=== PATIENT | female | born 1980 | race Caucasian/White ===

== ENCOUNTER 2024-07-20 23:38 | Emergency (ER) | payer MEDICAID ==
[~2024-07-20] VITALS: Ht 152.4 cm; Wt 69.0 kg
[2024-07-21 00:25] LABS: BASOPHILS % 1.3 % (0.0-2.0); EOSINOPHILS % 4.6 % (0.0-5.0); HEMATOCRIT. 32.2 % (36.0-48.0); LYMPHOCYTES % 35.8 % (20.0-50.0); MEAN CORPUSCULAR HEMOGLOBIN 19.3 pg (28.0-32.0); MEAN CORPUSCULAR VOLUME 62.2 fL (81.0-99.0); MEAN PLATELET VOLUME 9.1 fl (7.4-10.4); MONOCYTES % 5.8 % (2.0-8.0); NEUTROPHILS % 52.5 % (40.0-76.0); PLATELET 246 x1000/uL (130-400); RED BLOOD CELL COUNT 5.18 mill/uL (4.2-5.4); WHITE BLOOD COUNT 7.9 x1000/uL (4.5-11.0)
[2024-07-21 00:31] LABS: ADD RBC MORPHOLOGY YES; DIFFERENTIAL COMMENT 1
[2024-07-21 00:46] LABS: CHLORIDE 110 mEq/L (98-107); POTASSIUM 3.5 mEq/L (3.5-5.1); SODIUM 140 mEq/L (136-145)
[2024-07-21 00:47] LABS: CARBON DIOXIDE 23 mEq/L (21-32)
[2024-07-21 00:48] LABS: CALCIUM 9.4 mg/dL (8.7-10.4)
[2024-07-21 00:52] LABS: CREATININE 0.7 mg/dL (0.6-1.0); GLUCOSE 116 mg/dL (70-105); UREA NITROGEN BLOOD 9 mg/dL (9-23)
[2024-07-21 01:08] LABS: HCG SCREEN NEGATIVE
[2024-07-21 01:12] LABS: HYPOCHROMASIA 2+; MICROCYTOSIS 3+; PLATELET ESTIMATE NORMAL
[2024-07-21] MEDS: KETOROLAC 15MG/ML VIAL IV NR (01:45)
[2024-07-21] MEDS: ACETAMINOPHEN 325MG TABLET PO PRN (02:30)
[2024-07-21] MEDS: SODIUM CHLORIDE 0.9% 1,000 ML IV ONE (02:30)
[2024-07-21 02:52] LABS: CLARITY URINE CLEAR (CLEAR); COLOR URINE YELLOW (YELLOW); GLUCOSE URINE NEGATIVE (NEGATIVE); KETONES URINE TRACE (NEGATIVE); LEUKOCYTE ESTERASE URINE NEGATIVE (NEGATIVE); NITRITE URINE NEGATIVE (NEGATIVE); OCCULT BLOOD URINE NEGATIVE (NEGATIVE); PROTEIN URINE NEGATIVE (NEGATIVE); SPECIFIC GRAVITY URINE 1.032 (1.005-1.030)
[2024-07-21 02:55] LABS: *AMPHETAMINES SCREEN URINE NEGATIVE (NEGATIVE); *BARBITURATES SCREEN URINE NEGATIVE (NEGATIVE); *BENZODIAZEPINES SCREEN URINE NEGATIVE (NEGATIVE); *COCAINE SCREEN URINE NEGATIVE (NEGATIVE); CANNABINOID URINE SCREEN NEGATIVE (NEGATIVE); ECSTASY MDMA SCREEN URINE NEGATIVE (NEGATIVE); METHADONE URINE SCREEN NEGATIVE (NEGATIVE); OPIATES URINE SCREEN NEGATIVE (NEGATIVE); PHENCYCLIDINE URINE SCREEN NEGATIVE (NEGATIVE)
[2024-07-21] MEDS ORDERED: NAPR-1074 MT (03:50)
[2024-07-21] MEDS: KETOROLAC 15MG/ML VIAL IV ONE (04:14)
[2024-07-21 04:35] VITALS: BP 113/60; PULSE 60; RESP 19; TEMP 36.61404; O2SAT 99
== END 2024-07-21 04:36 | disposition home or self-care (01) ==
LOC: ER 23:38
DX: R10.2 Pelvic and perineal pain (principal); Z00.00 Encounter for general adult medical examination without abnormal findings
CPT/HCPCS: 99285; 76830; 76856; 80048; 81025; 84703; 85025; 86850; 86900; 86901; 36415; 96374; 96361; 96375; 80305; 81003; J1885; J7030

== ENCOUNTER 2025-07-15 20:09 | Emergency (ER) | payer MEDICAID ==
[~2025-07-15] VITALS: Ht 157.5 cm; Wt 63.0 kg
[~2025-07-15 20:09] MED LIST: NAPR-1074 MT
[2025-07-15 20:30] VITALS: O2SAT 100
[2025-07-15] MEDS: TETANUS, DIPHTHERIA, PERTUSSIS VAC/PF 0.5ML (>10YR OLD) IM ONE (21:43)
[2025-07-15] MEDS: LIDOCAINE HCL 1% 20ML VIAL INFIL ONE (21:44)
[2025-07-15] MEDS ORDERED: AMOX1TAB16 MT (22:08)
[2025-07-15] MEDS: ACETAMINOPHEN 325MG TABLET PO ONE (22:45)
[2025-07-15 22:46] VITALS: BP 97/59; PULSE 88; RESP 18; TEMP 36.7; O2SAT 100
== END 2025-07-15 22:49 | disposition home or self-care (01) ==
LOC: ER 20:09
DX: S71.151A Open bite, right thigh, initial encounter (principal); W54.0XXA Bitten by dog, initial encounter; Y93.01 Activity, walking, marching and hiking; Y92.89 Other specified places as the place of occurrence of the external cause; Y99.8 Other external cause status
CPT/HCPCS: 90471; 90715; 99283